=== PATIENT | male | born 1975 | race Caucasian/White ===

== ENCOUNTER 2021-04-18 22:43 | Emergency (ER) | payer OTHER, SELFPAY ==
[2021-04-18 22:44] VITALS: BP 139/90; PULSE 124; RESP 16; TEMP 36.8; O2SAT 98; BMI 29.5
--- NOTE | 2021-04-18 23:00 | EDS_ITS ---
HPI History of Present Illness Chief Complaint: Abd Pain Informant: patient Onset/Context/Timing Onset: Yesterday Current Severity: Mild Maximum Severity: Moderate Narrative Narrative: Patient presents secondary to lower abdominal pain with diarrhea and body aches. Patient states yesterday he started getting body aches and felt as if he had a fever. When he measured his temperature he was not febrile. He has had diarrhea for approximately last 24 hours. He states this evening he is having more intense abdominal cramping. No vomiting. No URI symptoms. Patient did have Covid a year and a half ago and is vaccinated. He does have a history of diverticulitis. He underwent upper and lower endoscopy a couple weeks ago and states at that time diverticular were noted with no inflammation. [facility] Medical History Anemia Diabetes Diverticulitis Home Medications alogliptin 25 mg PO DAILY 04/19/21 [History Last Taken Unknown] amoxicillin-pot clavulanate [Augmentin] 1 tab PO BID #20 tab 04/19/21 [Rx Last Taken Unknown] iron 04/19/21 [History Last Taken Unknown] metformin 1,000 mg PO BID 04/19/21 [History Last Taken Unknown] omeprazole magnesium [Prilosec OTC] 20 mg PO DAILY 04/19/21 [History Last Taken Unknown] pioglitazone 30 mg PO DAILY 04/19/21 [History Last Taken Unknown] simvastatin 20 mg PO DAILY 04/19/21 [History Last Taken Unknown] Allergy/AdvReac Type Severity Reaction Status Date / Time No Known Allergies Allergy Verified 04/19/21 01:26 Surgical History no surgical history no surgical history Social History Smoking Status: Never smoker [facility] ED Constitutional Constitutional ED: Reports fever(s) and subjective; Denies chills Eyes Eyes: Denies change in vision ENT ENT ED: Denies sore throat Cardiovascular Cardiovascular: Denies chest pain Respiratory/Chest Respiratory/Chest: Denies cough or dyspnea Gastrointestinal Gastrointestinal: Reports abdominal pain and diarrhea; Denies nausea or vomiting Genitourinary Genitourinary ED: Denies dysuria Musculoskeletal Musculoskeletal: Denies back pain Integumentary Denies rash Neurologic Neurologic: Denies headache(s) or weakness Allergic/Immunologic Allergic/Immunologic ED: Denies urticaria EXAM Physical Exam Const Vital Signs: 04/18/21 22:44 Temperature 98.2 F Temperature Source Temporal Pulse Rate 124 H Respiratory Rate 16 Blood Pressure 139/90 H Blood Pressure Mean 106 Pulse Ox 98 Oxygen Delivery Method Room Air Positive well nourished and well developed General Appearance ED: well developed HEENT Reports normocephalic and head/scalp atraumatic Eyes PERRL and EOMs intact bilaterally Neck supple Chest Wall inspection of chest normal and palpation of chest normal Resp normal respiratory effort and clear to auscultation bilaterally Cardio regular rate and regular rhythm GI Palpation: soft and tender LLQ (Minimal tenderness in the left lower quadrant.); Negative for guarding or rebound tenderness present Extremity normal to inspection Neuro oriented x3 and no sensory deficits noted Sensorium / Orientation: alert Motor Exam: strength 5/5 throughout Psych mental status grossly normal Skin no rashes or lesions noted MDM MDM MDM Narrative Medical decision making narrative: Lab work, urinalysis, Covid test obtained. CT with contrast ordered. Patient declined anything for pain. Lab Data Attestation: I reviewed the patient's lab results. Labs: Laboratory Results - last 24 hr 04/18/21 04/18/21 04/19/21 23:18 23:18 00:22 WBC 9.9 RBC 5.21 Hgb 14.7 Hct 45.0 MCV 86.4 MCH 28.2 MCHC 32.7 RDW Std Deviation 48.5 H RDW Coeff of Regino 15.4 H Plt Count 200 MPV 10.0 Immature Gran % (Auto) 1.100 H Neut % (Auto) 80.1 H Lymph % (Auto) 7.6 L [place] % (Auto) 9.7 Eos % (Auto) 1.0 Baso % (Auto) 0.5 Absolute Neuts (auto) 7.9 H Absolute Lymphs (auto) 0.75 L Nucleated RBC % 0 Sodium 138 Potassium 3.7 Chloride 103 Carbon Dioxide 28.0 Anion Gap 7 BUN 9 Creatinine 0.89 Estim Creat Clear Calc 104.81 Est GFR (MDRD) Af Amer 119 Est GFR (MDRD) Non-Af 98 BUN/Creatinine Ratio 10.1 Glucose 173 H Calcium 8.7 Urine Color Yellow Urine Clarity Clear Urine pH 6.0 Ur Specific [place] 1.015 Urine Protein 100 H Urine Glucose (UA) 50 H Urine Ketones Negative Urine Occult Blood 150 H Urine Nitrite Negative Urine Bilirubin Negative Urine Urobilinogen Normal Ur Leukocyte Esterase Negative Urine RBC 0 SEEN Urine WBC 0 SEEN Ur Squamous Epith Cells 0 SEEN Urine Bacteria 0 SEEN Urine Mucus 0 SEEN Radiography Diagnostic Testing: Clinical Impression(s) from Imaging Studies Abdomen/Pelvis CT 04/19/21 00:30 IMPRESSION: Acute diverticulitis involving distal descending colon. No free air or peridiverticular abscess. Electronically Signed: Sy Zabala MD at 1:52 EST Tel , Service support , Treatment and Re-Evaluation Comments:: Lab work reveals normal white count with mild left shift. Chemistry studies unremarkable. Urinalysis shows no infection. Covid test negative. CT scan does reveal acute diverticulitis with no evidence of abscess or perforation. Patient will be treated with a course of Augmentin, first dose given here. Return instructions provided. Discharge Plan Triage Chief Complaint: Abd Pain ED Provider: Terri Welch Dx/Rx/DC Orders Clinical Impression: Diverticulitis Instructions: ED Diverticulitis Prescriptions: New amoxicillin-pot clavulanate [Augmentin] 875-125 mg tablet 1 tab PO BID Qty: 20 RF: 0 No Action metformin 500 mg tablet 1,000 mg PO BID RF: 0 simvastatin 20 mg tablet 20 mg PO DAILY RF: 0 pioglitazone 30 mg tablet 30 mg PO DAILY RF: 0 omeprazole magnesium [Prilosec OTC] 20 mg Tablet,Delayed Release (Dr/Ec) 20 mg PO DAILY RF: 0 alogliptin 25 mg tablet 25 mg PO DAILY RF: 0 iron RF: 0 Primary Care Provider: Adrian Herrmann Referrals: Adrian Herrmann MD [Primary Care Provider] - 1-2 Weeks Disposition Disposition: Home, Self Care
[2021-04-18] MEDS: 0.9% Normal Saline 1,000 ML 150 ML IV (23:23)
[2021-04-18 23:30] LABS: Absolute Lymphocyte Count 0.75 X10^3/uL (0.83-4.51); Absolute Neutrophil Count 7.9 X10^3/uL (2.0-7.7); Basophil# 0.05 X10^3/uL; Basophil% 0.5 % (0-1); Hemoglobin 14.7 g/dL (13.0-16.5); Lymphocyte # 0.75 X10^3/ul (0.83-4.51); Lymphocyte % 7.6 % (19-41); Mean Corp Hgb Conc 32.7 g/dL (32-36); Mean Corpuscular Hgb 28.2 pg (27.0-32.0); Mean Corpuscular Volume 86.4 fL (80-94); Monocyte# 0.96 X10^3/uL; Monocyte% 9.7 % (0-10); NRBC Flagged by Analyzer 0 % (0-5); Neutrophil % 80.1 % (47-70); Platelet Count 200 K/mm3 (150-450); RBC Distribution Width CV 15.4 % (11.6-14.6); RBC Distribution Width SD 48.5 fl (35.1-43.9); Red Blood Count 5.21 M/mm3 (4.6-6.2); White Blood Count 9.9 K/mm3 (4.4-11.0)
[2021-04-19 00:04] LABS: Anion Gap 7 (5-15); BUN 9 mg/dL (7-18); BUN/Creat Ratio 10.1 RATIO (10-20); Calcium,Total 8.7 mg/dL (8.5-10.1); Chloride 103 mmol/L (98-107); Creatinine, Serum 0.89 mg/dL (0.70-1.30); EST Glomerular Filtration Rate 98 mL/min (>60); Est Glom Filt Rate - Afr Amer 119 mL/min (>60); Estimated Creatinine Clearance 104.81 ml/min; Glucose 173 mg/dL (74-106); Potassium 3.7 mmol/L (3.5-5.1); Sodium Level 138 mmol/L (136-145)
[2021-04-19 00:27] LABS: Bacteria 0 SEEN /hpf (None Seen); Mucous, Urine 0 SEEN /hpf (<or=2+); Red Blood Cells-Urine 0 SEEN /hpf (0-5); Squamous Epithelial Cells - UA 0 SEEN /hpf (0-5); White Blood Cells 0 SEEN /hpf (0-5)
[2021-04-19 00:28] LABS: Color, Urine Yellow (Yellow); Glucose, Dipstick 50 mg/dl (Normal); Ketone-Dipstick Negative (Negative); Leukocyte Esterase-Dipstick Negative /ul (Negative); Nitrite-Dipstick Negative (Negative); Occult Blood-Urine 150 /ul (Negative); Protein-Dipstick 100 mg/dl (Negative); Specific Gravity, Urine 1.015 (1.002-1.030); Urine Bilirubin Dipstick Negative (Negative); Urine Clarity Clear (Clear); Urine Urobilinogen Normal (Normal)
--- NOTE | 2021-04-19 00:30 | CT_ITS ---
STUDY: CT ABDOMEN AND PELVIS WITH CONTRAST REASON FOR EXAM: Male, 45 years old. abd pain -- IV PO Contrast RADIATION DOSAGE (If Supplied By Facility): CTDIvol = ( 13.79 ) mGy, DLP = ( 1153.10 ) mGycm TECHNIQUE: Transaxial images were obtained from the dome of the diaphragm to the symphysis pubis without oral contrast. Oral and amp; IV Gastrografin and amp; 100mL Isovue-300 was administered. Sagittal and coronal images were reconstructed. Individualized dose optimization techniques were used for this CT. COMPARISON: None. FINDINGS: Minimal bibasilar dependent atelectasis. Unremarkable liver, spleen, pancreas, adrenals, and bilateral kidneys. No definite cholelithiasis. Normal appendix. Bowel loops nonobstructed. Distal colonic diverticulosis. Circumferential wall thickening of distal descending colon with surrounding fat stranding, compatible with acute diverticulitis. No free air or peridiverticular abscess. No free fluid. No abdominal adenopathy. No abdominal aortic aneurysm. Sections through the pelvis demonstrate a mildly enlarged prostate. Urinary bladder grossly unremarkable. A tiny fat-containing left inguinal hernia. Mild multilevel thoracolumbar spondylosis. Mild osteoarthritis of the bilateral hip joints. CT/Abdomen/Pelvis WITH Contrast IMPRESSION: Acute diverticulitis involving distal descending colon. No free air or peridiverticular abscess. Electronically Signed: Sy Zabala MD at 1:52 EST Tel , Service support ,
[2021-04-19 02:04] VITALS: BP 117/78; PULSE 104; RESP 18; O2SAT 97
[2021-04-19] MEDS: Amox/Clavulanate 875 MG Tablet PO (02:04)
== END 2021-04-19 02:07 | disposition home or self-care (01) ==
PROVIDERS: Emergency Provider Emergency Medicine; PCP Family Medicine
DX: K57.32 Diverticulitis of large intestine without perforation or abscess without bleeding (principal); E11.9 Type 2 diabetes mellitus without complications; Z79.84 Long term (current) use of oral hypoglycemic drugs
CPT/HCPCS: 74177; 80048; 81001; 85025; 87426; 96360; 96361; 99284; J7030; Q9967